=== PATIENT | female | born 1990 | race African-American/Black ===

== ENCOUNTER 2016-12-18 22:14 | Emergency (ER) | payer SELFPAY ==
[2016-12-18 22:23] VITALS: BMI 24.2
[2016-12-18 22:56] LABS: BILIRUBIN,URINE NEGATIVE (NEGATIVE); BLOOD/HEMOGLOBIN,URINE 1+ (NEGATIVE); GLUCOSE, URINE NEGATIVE (NEGATIVE); KETONES,URINE 4+ (NEGATIVE); LEUKOCYTE ESTERASE ,URINE NEGATIVE (NEGATIVE); NITRITES,URINE POSITIVE (NEGATIVE); PROTEIN,URINE 1+ (NEGATIVE); UROBILINOGEN,URINE NORMAL (NORMAL)
[2016-12-18] MEDS ORDERED: NS 1000 ML 1,000 ML IV ONE (23:02)
--- NOTE | 2016-12-18 23:08 | DR.GENAD ---
HPI - PCP Primary Care Physician: nfd - Complaint/Symptoms Chief Complaint Doctors Comments: Patient complains of lower abdominal pain and hurting all over with pain in her abdomen and in the right side of her neck for the past seven hours. Patient states she did a home test two weeks ago and it was positive. She has not gone to a doctor. She went to the hospital in [place] today and they told her she was possibly early and they could not see anything in her womb and she may have an ectopic and they could give her a shot for ectopic or take her to surgery. States they gave her some Dilaudid and Morphine and it did not control the pain completely. She denies fever, chills, cold, or cough. States she has been five times and the last one was two years ago. She is not taking any contraceptives. Patient states she has not been able to eat or keep anything down today. She has been vomiting greenish liquids. Self Treatment fo Chief Complaint: rt side abd pain-o/s this am-says she is -lmp in october-pt says she just left [facility] for same c/o-they told her she had either a tubal prenancy or something wrong with uterus-pt left [facility] - Nurses notes reviewed Nurses Notes Review: Yes - Source History Provided: Patient - Mode of Arrival Mode of Arrival: Ambulatory - Timing Onset of Chief Complaint: 12/18/16 Came on: Gradually - Duration Duration: Constant How lon Duration: Hours - Location Location: right lower abdominal pain - Severity Severity: Severe - Modifying Factors Worsens:: movement Improves:: nothing PMH - PMH Past Medical History: No Past Surgical History: Yes Surgical History: Past Surgical History Comment: tubal with surgery - Family History History of Family Medical Conditions: No - infectious screening In the last 2 months have you had wt loss of >10#?: NO Have you had fever, night sweats or hemotysis?: No Have you traveled outside the country in the last 6 months?: No Isolation: Standard ROS - Review of Systems Constitutional: No Symptoms Reported Eyes: No Symptoms Reported ENTM: No Symptoms Reported Respiratoy: No Symptoms Reported Cardiovascular: No Symptoms Reported Gastrointestinal/Abdominal: No Symptoms Reported, Abdominal Pain Genitourinary: No Symptoms Reported. negative: See HPI, Discharge, Dysuria, Frequency, Hematuria, Pain, Bleeding, Other Neurological: No Symptoms Reported Musculoskeletal: No Symptoms Reported, Neck Integumentary: No Symptoms Reported Hematologic/Lymphatic: No Symptoms Reported Endocrine: No Symptoms Reported Psychiatric: No Symptoms Reported PE - Vital Signs Vitals: Temperature 98.5 F Pulse Rate [Right Brachial] 130 Pulse Rate 88 Respiratory Rate 24 Blood Pressure [Left Arm] 100/61 Blood Pressure [Right Arm] 99/70 Blood Pressure 108/60 O2 Sat by Pulse Oximetry 98 - General Limitations: No Limitations General Appearance: Alert, In Distress (moderate to severe) - Head Head Exam: Normal Inspection, Atraumatic, Normocephalic - Eyes Eye exam: Normal Appearance, PERRL, EOMI. negative: Scleral Icterus, Conjunctival Injection, Nystagmus, Miosis, Mydrasis, Periorbital Swelling, Periorbital Tenderness, Other - ENT ENT Exam: Normal Exam, Normal Oropharynx, Normal External Ear Exam, Mucous Membranes Moist, TM's Normal Bilaterally External Ear Exam: Normal External Inspection TM/Canal Exam: Bilateral Normal Nose Exam: Normal Nose Exam Mouth Exam: Normal Inspection Throat Exam: Normal Inspection - Neck Neck Exam: Normal Inspection, Full ROM, Trachea Midline - Chest Chest Inspection: Normal Inspection, Symmetric Chest Wall Rise - Respiratory Respiratory Exam: Normal Lung Sounds Bilat Respiratory Exam: Bilateral Clear to Auscultation - Cardiovascular Cardiovascular Exam: Regular Rate, Normal Heart Sounds. negative: Normal Rhythm , Bradycardia, Tachycardia, Irregular Rhythm, Systolic Murmur, Diastolic Murmur , Rubs, Gallop, Clicks, JVD, +S1, +S2, +S3, +S4, Other - Abdominal Exam Abdominal Exam: Normal Inspection, Normal Bowel Sounds, Soft, Tenderness (RLQ and suprapubic tenderness), Guarding Abdominal Tenderness: RLQ, Suprapubic, Severe - Extremities Extremities Exam: Normal Inspection, Full ROM, Normal Capillary Refill. negative: Tenderness, Edema, Joint Swelling, Calf Tenderness, Other - Back Back Exam: Normal Inspection, Full ROM. negative: Tenderness, (R) CVA Tenderness, (L) CVA Tenderness, Muscle Spasm, Paraspinal Tenderness, Vertebral Tenderness, Rashes, (R) Sciatic Notch Tenderness, (L) Sciatic Notch Tendern, (R ) Straight Leg Raise, (L) Straight Leg Raise, Other - Neurologic Neurological Exam: Alert, Oriented X3, CN II-XII Intact - Psychiatric Psychiatric Exam: Normal Affect, Normal Mood - Skin Skin Exam: Warm, Dry, Intact, Normal Color Course - Reevaluation 1st: Improved 2nd: Unchanged (Patient complaining of gas; no vomiting. Refuses to be transferred to another hospital by ambulance.) - Consultation Called: 02:45 Call Returned: 04:15 Consultation Comments: 0400 Dr. Strong called and the patient was discussed and he states he will see the patient in his office for followup and repeat labs. Informed of patient's HCG level 6500 and no yolk or pole identified on ultrasound,. 0410 talked with patient she is demanded something for the gas in her neck and asking the bacteriologist industrial to go to store for something for gas. States she does not want anything for pain just something for gas. patient informed that she need continued observation because of a syncope-like episode she had when she tried to leave. Patient agrees to go back to [place] but refuses to go by ambulance states her boyfriend will take her in his car. Told patient I feel she need to go by ambulance and I will arrange a transfer but she refuses and states she will sign AMA and her boy friend will take her back to [place] or to [place]. Talked with them about the dangers and the possibility of an ectopic and they voice understanding but she is still signing AMA. - Education/Counseling Education/Counseling: Patient, Family Educated On: Treatment, Diagnosis, Needs for Follow Up ROR - Labs Reviewed Laboratory Results Reviewed?: Yes (All labs and US reports has been reviewed and discussed with patient) Result Diagrams: 12/18/16 23:20 12/18/16 23:20 Laboratory: WBC 16.6 X10^3/uL (3.6-10.0) H 12/18/16 23:20 RBC 3.60 X10^6/uL (3.5-5.4) 12/18/16 23:20 Hgb 10.6 g/dL (12.0-16.0) L 12/18/16 23:20 Hct 32.0 % (36.0-47.0) L 12/18/16 23:20 MCV 88.9 fL (80.0-100.0) 12/18/16 23:20 MCH 29.3 pg (27.0-34.0) 12/18/16 23:20 MCHC 33.0 g/dL (33.0-35.0) 12/18/16 23:20 RDW 14.7 % (11.6-16.5) 12/18/16 23:20 Plt Count 172 X10^3/uL (150.0-450.0) 12/18/16 23:20 Plt Count Comment Adequate (ADEQUATE) 12/18/16 23:20 MPV 9.8 fL (7.4-11.0) 12/18/16 23:20 Neut % 91.4 % (42.0-75.0) H 12/18/16 23:20 Lymph % 5.8 % (21.0-51.0) L 12/18/16 23:20 Jones % 2.6 % (0.0-13.0) 12/18/16 23:20 Eos % 0.0 % (0.9-2.9) L 12/18/16 23:20 Baso % 0.2 % (0.2-1.0) 12/18/16 23:20 Neut # 15.2 x10^3/uL (2.2-4.8) H 12/18/16 23:20 Lymph # 1.0 X10^3/uL (1.3-2.9) L 12/18/16 23:20 Jones # 0.4 x10^3/uL (0.3-0.8) 12/18/16 23:20 Eos # 0.0 x10^3/uL (0.0-0.2) 12/18/16 23:20 Baso # 0.0 X10^3/uL (0.0-0.1) 12/18/16 23:20 Absolute Nucleated RBC 0.0 /100WBC 12/18/16 23:20 Total Counted 100 12/18/16 23:20 Neutrophils % (Manual) 85 % (39-76) H 12/18/16 23:20 Band Neutrophils % 8 % (0-10) 12/18/16 23:20 Lymphocytes % (Manual) 7 % (13-43) L 12/18/16 23:20 Plt Morphology Comment Normal (NORMAL) 12/18/16 23:20 RBC Morphology Normal (NORMAL) 12/18/16 23:20 Sodium 140 mmol/L (136-145) 12/18/16 23:20 Corrected Sodium 141 mmol/L (136-145) 12/18/16 23:20 Potassium 3.6 mmol/L (3.5-5.1) 12/18/16 23:20 Chloride 107 mmol/L (98-107) 12/18/16 23:20 Carbon Dioxide 22.3 mmol/L (21-32) 12/18/16 23:20 BUN 11 mg/dL (7-18) 12/18/16 23:20 Creatinine 0.76 mg/dL (0.55-1.02) 12/18/16 23:20 Est GFR (MDRD) Af Amer > 60 (>60) 12/18/16 23:20 Est GFR (MDRD) Non-Af > 60 (>60) 12/18/16 23:20 Glucose 140 mg/dL (65-99) H 12/18/16 23:20 Lactic Acid 1.0 mmol/L (0.4-2.0) 12/19/16 00:10 Calcium 8.0 mg/dL (8.5-10.1) L 12/18/16 23:20 Corrected Calcium TNP 12/18/16 23:20 Total Bilirubin 0.30 mg/dL (0.2-1.0) 12/18/16 23:20 AST 12 Units/L (15-37) L 12/18/16 23:20 ALT 18 Units/L (12-78) 12/18/16 23:20 Alkaline Phosphatase 58 Units/L (46-116) 12/18/16 23:20 Total Protein 6.8 g/dL (6.4-8.2) 12/18/16 23:20 Albumin 3.6 g/dL (3.4-5.0) 12/18/16 23:20 Globulin 3.2 g/dL (2.5-4.5) 12/18/16 23:20 Albumin/Globulin Ratio 1.1 Ratio (1.1-2.1) 12/18/16 23:20 Amylase 29 Units/L (25-115) 12/18/16 23:20 Lipase 48 Units/L (73-393) L 12/18/16 23:20 HCG, Qual Positive >10 mIU/mL 12/18/16 23:20 HCG, Quant 6500 mIU/mL (0-6) H 12/18/16 23:20 Specimen Type Clean catch urine 12/18/16 22:42 Urine Color Yellow (YELLOW) 12/18/16 22:42 Urine Appearance Slightly hazy (CLEAR) 12/18/16 22:42 Urine pH 6.0 (5.0 - 8.0) 12/18/16 22:42 Ur Specific [place] 1.020 (1.000-1.030) 12/18/16 22:42 Urine Protein 1+ (NEGATIVE) 12/18/16 22:42 Urine Glucose (UA) Negative (NEGATIVE) 12/18/16 22:42 Urine Ketones 4+ (NEGATIVE) 12/18/16 22:42 Urine Occult Blood 1+ (NEGATIVE) 12/18/16 22:42 Urine Nitrite Positive (NEGATIVE) 12/18/16 22:42 Urine Bilirubin Negative (NEGATIVE) 12/18/16 22:42 Urine Urobilinogen Normal (NORMAL) 12/18/16 22:42 Ur Leukocyte Esterase Negative (NEGATIVE) 12/18/16 22:42 Urine RBC 2-6 /HPF (NEGATIVE) 12/18/16 22:42 Urine WBC 10-15 /HPF (NEGATIVE) 12/18/16 22:42 Ur Squamous Epith Cells Rare /HPF (NEGATIVE) 12/18/16 22:42 Urine Bacteria 3+ /HPF (NEGATIVE) 12/18/16 22:42 Ur Culture Indicated? Yes/culture set up 12/18/16 22:42 Urine Opiates Screen Positive (NEG=<300) A 12/18/16 23:07 Urine Methadone Screen Negative (NEG=<300) 12/18/16 23:07 Ur Barbiturates Screen Negative (NEG=<200) 12/18/16 23:07 Ur Phencyclidine Scrn Negative (NEG=<25) 12/18/16 23:07 Ur Amphetamines Screen Negative (NEG=<1000) 12/18/16 23:07 U Benzodiazepines Scrn Negative (NEG=<200) 12/18/16 23:07 Urine Cocaine Screen Negative (NEG=<300) 12/18/16 23:07 U Marijuana (THC) Screen Positive (NEG=<50) A 12/18/16 23:07 - XRAY XRAY Interpreted by: Radiologist (U/S: Possible intrauterine gestational sac. No yold sac or pole identified at this time. Right overy there is a corpus luteal cyst. Short-term followup is recommended.) - Diagnosis Discharge Problem: possible intrauterine gestational sac, Urinary tract infection, Corpus luteum cyst of right ovary, Hyperglycemia, Marijuana use, Right ovarian lesion r/o Ectopic Abdominal pain Qualifiers: Abdominal location: right lower quadrant Qualified Code(s): R10.31 - Right lower quadrant pain - Discharge Plan Disposition: 07 AGAINST MEDICAL ADVICE Condition: Stable - Follow ups/Referrals Follow ups/Referrals: NFD,None [Primary Care Provider] - 3 days - Instructions
[2016-12-18] MEDS ORDERED: NS 1000 ML 1,000 ML ONE (23:11)
[2016-12-18 23:23] LABS: APPEARANCE,URINE SLIGHTLY HAZY (CLEAR); BACTERIA,URINE 3+ /HPF (NEGATIVE); COLOR,URINE YELLOW (YELLOW); SQUAMOUS EPITHELIAL CELL,UR RARE /HPF (NEGATIVE)
[2016-12-18 23:36] LABS: BASOPHILS % (AUTO) 0.2 % (0.2-1.0); HEMOGLOBIN 10.6 g/dL (12.0-16.0); LYMPHOCYTES % (AUTO) 5.8 % (21.0-51.0); MEAN CORPUSCULAR HEMOGLOBIN 29.3 pg (27.0-34.0); MEAN CORPUSCULAR VOLUME 88.9 fL (80.0-100.0); MEAN PLATELET VOLUME 9.8 fL (7.4-11.0); MONOCYTES # (AUTO) 0.4 x10^3/uL (0.3-0.8); MONOCYTES % (AUTO) 2.6 % (0.0-13.0); NEUTROPHILS # (AUTO) 15.2 x10^3/uL (2.2-4.8); NEUTROPHILS % (AUTO) 91.4 % (42.0-75.0); PLATELET COUNT 172 X10^3/uL (150.0-450.0); RED CELL DISTRIBUTION WIDTH 14.7 % (11.6-16.5); WHITE BLOOD COUNT 16.6 X10^3/uL (3.6-10.0)
[2016-12-18 23:41] LABS: SERUM PREGNANCY TEST, QUAL POSITIVE >10 mIU/mL
[2016-12-18 23:44] LABS: ALANINE AMINOTRANSFERASE 18 Units/L (12-78); ALBUMIN 3.6 g/dL (3.4-5.0); ALKALINE PHOSPHATASE 58 Units/L (46-116); AMYLASE 29 Units/L (25-115); ASPARTATE AMINO TRANSFERASE 12 Units/L (15-37); BLOOD UREA NITROGEN 11 mg/dL (7-18); CARBON DIOXIDE 22.3 mmol/L (21-32); CHLORIDE 107 mmol/L (98-107); COR NA(FOR HYPERGLY) 141 mmol/L (136-145); CREATININE 0.76 mg/dL (0.55-1.02); GLUCOSE 140 mg/dL (65-99); LIPASE 48 Units/L (73-393); SODIUM 140 mmol/L (136-145); TOTAL PROTEIN 6.8 g/dL (6.4-8.2); eGFR BLACK RACES > 60 (>60); eGFR NON BLACK RACES > 60 (>60)
[2016-12-19] MEDS ORDERED: ROCEPHIN VIAL 1 GM 1 GM in NS 50 ML IV + SPIKE MINIBAG* 50 ML IV ONE (00:01)
[2016-12-19 00:09] LABS: BAND NEUTROPHILS % 8 % (0-10); PLATELET MORPHOLOGY COMMENT NORMAL (NORMAL)
[2016-12-19 00:15] LABS: HCG,QUANTITATIVE 6500 mIU/mL (0-6)
[2016-12-19] MEDS ORDERED: ROCEPHIN 1 GM IV PREMIX * OUT OF STOCK 50 ML IV ONE (00:19)
--- NOTE | 2016-12-19 01:53 | US ---
Exam: Transabdominal pelvic ultrasound History: , pain Comparison: No prior ultrasound for comparison Technique: Grayscale, color, and power Doppler imaging of the pelvis was performed using a transabdo macario approach. Findings: There is an intrauterine gestational sac. No yolk sac or pole identified. In the ri ght ovary there is a thick-walled cyst. No significant color flow is demonstrated around cyst in the appearance is consistent with a corpus luteal cyst. No free fluid or mass. Conclusion: There is a possible intrauterine gestational sac. No yolk sac or pole identified at this time. Short-term followup is recommended. In the right ovary there is a corpus luteal cyst. Reported By:
[2016-12-19 03:29] VITALS: BP 100/61
[2016-12-19] MEDS ORDERED: NS 1000 ML 1,000 ML ONE (03:36)
[2016-12-19] MEDS ORDERED: NS 1000 ML 1,000 ML IV SCH (04:00)
[2016-12-19] MEDS ORDERED: MAALOX or MYLANTA PO STA (04:04)
[2016-12-19] MEDS ORDERED: MAALOX or MYLANTA ONE (04:07)
== END 2016-12-19 04:17 | disposition left against medical advice (07) ==
LOC: ER 22:14
DX: N39.0 Urinary tract infection, site not specified (principal); N83.11 Corpus luteum cyst of right ovary; R73.9 Hyperglycemia, unspecified; F12.10 Cannabis abuse, uncomplicated; N83.9 Noninflammatory disorder of ovary, fallopian tube and broad ligament, unspecified; B96.29 Other Escherichia coli [E. coli] as the cause of diseases classified elsewhere
CPT/HCPCS: 36415; 76801; 80053; 80307; 81001; 82150; 83605; 83690; 84702; 84703; 85025; 87086; 87088; 87186; 96365; 96367; 96374; 99283; 99284; A4216; A4222; G0434; J0696